=== PATIENT | male | born 1965 | race Caucasian/White ===

== ENCOUNTER 2020-04-30 12:58 | Inpatient (IN) | payer MEDICARE, OTHER ==
[~2020-04-30 12:58] MED LIST: Iopamidol-370 76% 500 ML 1 ML ONE
[2020-04-30] MEDS ORDERED: Acetaminophen 500 MG TAB ONE ×2 (13:34→13:45)
[2020-04-30] MEDS ORDERED: Aspirin 325 MG TAB ONE (13:45)
--- NOTE | 2020-04-30 16:34 | CT ---
Head CT without contrast: CT angiogram head CT angiogram neck: 04/30/2020 HISTORY: Vertigo for one week, acute worsening of vertigo early this morning. Right-sided headache TECHNIQUE: Axial CT imaging at 3.75 mm intervals from vertex through skull base without contrast. Sub sequently, axial CT imaging at 1.25 mm intervals from vertex through lung apices with IV contrast using CT angiogram protocol with coronal and sagittal 3-D reformatted imaging FINDINGS: The noncontrast enhanced head CT demonstrates no intracranial hemorrhage, midline shift, ma ss effect, or ventricular enlargement. The visualized paranasal sinuses and mastoid air cells appear well aerated. No displaced calvarial fracture. Incidental note is made of a pulmonary nodule in the right upper lobe measuring 9 mm on axial image 3 9. There are also partially visualized prominent nodes in the hilar regions measuring up to approximately 1.6 cm on the left and 2 cm on the right. The retroantral fat, parapharyngeal fat, parotid gland, and submandibular glands unremarkable bilater ally. Hyoid bone, thyroid cartilage, cricoid cartilage, level of the glottis, thyroid gland, the epiglottis and preepiglottic fat appear grossly unremarkable. No lymphadenopathy is noted within the neck. The vertebral artery is patent bilaterally with no evidence for hemodynamically significant stenosis or vascular occlusion of either vertebral artery. The basilar artery is patent. There is a patent posterior communicating artery on the left with a hyp oplastic left P1 segment. Bilateral posterior cerebral arteries appear patent. No saccular aneurysm, high-grade stenosis, or vascular occlusion is seen involving the posterior circulation. The origin of the innominate artery, bilateral subclavian arteries, and bilateral common carotid romeo ricky appears unremarkable. There is a bovine arch noted. On the basis of NASCET criteria there is no hemodynamically significant stenosis seen involving the internal or the common carotid artery on e ither side. The M1 segment, the MCA bifurcation, the a 1 segment, the anterior communicating artery, the distal A CA branches, and the distal MCA branches appear unremarkable with no saccular aneurysm, high-grade stenosis, or vascular occlusion noted. IMPRESSION: Noncontrast enhanced head CT demonstrates no intracranial hemorrhage. CT angiogram of the head and neck demonstrates no acute arterial abnormality. There is a pulmonary nodule within the right upper lobe measuring in the 9 mm range and there is bila teral hilar prominence, incompletely assessed. Follow-up CT of the chest with IV contrast suggested. Results discussed with Dr. Trujillo at 4:30 PM 04/30/2020
--- NOTE | 2020-04-30 17:29 | CON ---
NEUROLOGY CONSULTATION DATE OF CONSULTATION: 04/30/2020 REASON FOR CONSULTATION: Dizziness, nausea, vomiting R/O posterior circulation TIA HISTORY OF PRESENT ILLNESS: Mr. Mehta is a 54-year-old male with medical history significant for hypertension and anxiety disorder who presented to the emergency room with dizziness and severe headache associated with nausea and vomiting. He was at the outside hospital and there was a concern about posterior circulation stroke, so he was transferred here for higher level of care. Per patient, he woke up around 3:00 a.m. in the morning and was stumbling and felt like the room and everything is moving in waves. He woke up his around 6:30 am and at that time he also had severe headache with dizziness, difficulty walking with nausea and vomiting which lasted till 7 am. The decided to bring him to the hospital for further evaluation. He had history of hypertension and anxiety disorder and is supposed to be on medications, which he has not taken. One week prior to this admission, he was evaluated for vertigo which resolved with scopolamine. The patient's symptoms have been improved since admission through the emergency room, and he denies any focal weakness, focal paresthesias, double vision, loss of vision, loss of consciousness, difficulty with slurred speech, aphasia, chest pain, abdominal pain, recent illness or recent exposure to COVID-19. Head CT was done at the outside emergency room and he was transferred here for higher level of care because of concern of posterior circulation TIA/Stroke. In the emergency room, CTA of the head and neck was done, which was negative for acute intracranial pathology. Head CT did not reveal any bleed or acute intracranial pathology. REVIEW OF SYSTEMS: All systems reviewed and were negative except the pertinent positives and negatives mentioned in the HPI. PAST MEDICAL HISTORY: Anxiety disorder, hypertension. PAST SURGICAL HISTORY: None. ALLERGIES: PENICILLIN. SOCIAL HISTORY: , lives with his . He denies any illegal drug abuse. PHYSICAL EXAMINATION: VITAL SIGNS: Blood pressure 140/60, pulse 88, respiratory rate 18. CVS: Regular rate and rhythm. CHEST: Clear. ABDOMEN: Soft. NECK: Supple. NEUROLOGIC: Mental status, the patient is alert and oriented to person, place, and time. Speech is clear. Recent and remote memory intact. Fund of knowledge is appropriate. Cranial nerves 2 through 12 intact. No nystagmus. Motor, muscle tone and bulk are normal. Strength 5/5 bilaterally. Sensory intact. Cerebellar, finger-nose testing intact. Gait deferred due to patient's safety reason. DATA REVIEWED: I reviewed the CT of the head and neck, which was negative for acute intracranial pathology. Head CT was negative for acute intracranial hemorrhage. ASSESSMENT AND PLAN: Mr. Mehta is a 54-year-old male with medical history significant for hypertension and anxiety disorder, presented to the emergency room with dizziness, nausea, vomiting with concern for posterior circulation stroke. Consider MRI of the brain to rule out acute intracranial pathology. Head CT did not reveal any acute intracranial hemorrhage. CT of the head and neck did not reveal hemodynamically significant stenosis. Neuro checks every 4 hours, continue permissive control of blood pressure at this time. Strict control of blood glucose. Check hemoglobin A1c, fasting lipid panel, and TSH. Telemetry to rule out arrhythmias. 2D echo to evaluate for left ventricular ejection fraction and to rule out PFO. Start aspirin and high-intensity statin for secondary stroke prevention. Continue medical management per primary team. Plan discussed in detail with the ED physician, the patient and the . We will continue to follow. Thank you for the consult. Job ID: [id number] [facility]
--- NOTE | 2020-04-30 17:31 | MRI ---
MRI BRAIN WITHOUT CONTRAST: HISTORY: Altered mental status, vertigo FINDINGS: No restricted diffusion is seen. There are few foci of T2 prolongation in the periventricular white m atter, consistent with minimal chronic small vessel ischemic disease. The ventricular size is appropriate and the basilar cisterns are patent. No evidence of acute infarct, hemorrhage, midline shift or abnormal extra-axial fluid collections is seen. The visualized paranasal sinuses and mastoid air cells are well-aerated. IMPRESSION: No evidence of acute intracranial process.
[2020-04-30 17:57] VITALS: BMI 35.6
[2020-04-30] MEDS ORDERED: Acetaminophen 325 MG TAB PO PRN (19:15)
[2020-04-30] MEDS ORDERED: Ondansetron PF 4 MG/2 ML Vial IVP PRN (19:15)
[2020-04-30] MEDS ORDERED: Ondansetron ODT 4 MG TAB SL PRN (19:15)
[2020-04-30] MEDS: Atorvastatin Calcium 40 MG TAB PO SCH (20:45)
--- NOTE | 2020-05-01 00:30 | HP ---
REASON FOR ADMISSION: Dizziness. HISTORY OF PRESENT ILLNESS: This is a 54-year-old male patient, who a week ago developed dizziness described as imbalance. He visited an urgent care and was given scopolamine. He improved, but the sensation recurred today. He described it as inability to ambulate without holding onto something, he could not even walk to the bathroom. He did experience right-sided lip numbness, but no arm or leg numbness. No visual changes. No headaches. No loss of consciousness, he did visit [facility]. 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 He was sent to our hospital. Currently, he is in our emergency room, appears to be doing well, was eating his dinner. He denies being dizzy, his tells me that he had something similar in the past, labeled as having a TIA, he does have history of hypertension but is not taking his blood pressure medications. PAST MEDICAL HISTORY: 1. High blood pressure, noncompliant with his medication. 2. 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 3. Anxiety. 4. TIA. SOCIAL HISTORY: He does not smoke. He drinks socially. FAMILY HISTORY: Positive for heart disease. ALLERGIES: TO SULFA AND PENICILLIN. HE DOES NOT EXACTLY REMEMBER THE REACTION, BUT HE THINKS HE HAD A RASH WHEN HE TOOK THOSE TWO MEDICATIONS IN THE PAST. REVIEW OF SYSTEMS: All systems reviewed except the above mentioned dizziness found to be negative. PHYSICAL EXAMINATION: GENERAL: Awake, alert, oriented, does not appear in distress. VITAL SIGNS: His blood pressure is 158/98, pulse of 70, saturating 98% on room air. HEENT: Head is nontraumatic, normocephalic. Pupils equal, reactive. Extraocular movements are intact. Nonicteric sclerae. Well injected conjunctivae. Oral mucosa normal. Nasal mucosa normal. NECK: Supple. No adenopathy. No murmur. Thyroid is not palpable. Trachea is midline. No supraclavicular adenopathy. HEART: S1, S2, regular. No murmurs. No gallops. No friction rubs. No displacement of PMI. LUNGS: Clear to auscultation bilaterally. No wheezes. No rhonchi. No crackles. ABDOMEN: Bowel sounds are positive. Nontender abdomen. No visceromegaly. EXTREMITIES: No lower extremity edema. No cyanosis noted. NEURO: Cranial nerves II through XII within normal limits. Normal motor function. Normal sensory function and reflexes. No dysmetria. LABS AND IMAGING: Blood work done at [facility] shows WBC of 4.2, hemoglobin 16, and platelets of 135. Sodium 141, potassium 4.5, BUN 15, creatinine 1.2. LFTs within normal limits. EKG shows normal sinus rhythm. CTA of the head and neck shows no intracranial abnormality, incidental finding of a pulmonary nodule within the right upper lobe measuring in the 9 mm range, and bilateral hilar prominence, incompletely assessed. Followup CT of the chest with IV contrast suggested. Brain MRI is still pending. ASSESSMENT AND PLAN: This is a 54-year-old male patient, who is presenting with vertigo/dizziness. He did undergo CT of the head that basically did not show any abnormality. Incidentally, we saw some nodules in the lungs. Recommended CT of the chest. 1. Neuro: The patient will be admitted, will do frequent neuro checks. We will practice permissive hypertension. We will start him on aspirin, Neurology was consulted through the ER, will start him on Lipitor, we will check his lipid profile. 2. Cardiac: The patient has high blood pressure. He is noncompliant with his medication, for now we will practice permissive hypertension. 3. For DVT prophylaxis, he will be on Lovenox. 4. For the incidental finding of pulmonary nodules, we will do a CT of the chest with IV contrast to further investigate that finding. Job ID: [id number]
[2020-05-01 03:10] LABS: SARS-CoV-2 PCR by NAA Not Detected (NotDetected)
[2020-05-01 05:51] LABS: Cardiac Risk 4.2 (Less than 4.5)
[2020-05-01] MEDS: Aspirin 325 mg Enteric Coated Tablet PO SCH (08:28)
[2020-05-01] MEDS: Enoxaparin Sodium 40 MG/0.4 ML SYRINGE SC SCH (08:28)
--- NOTE | 2020-05-01 13:18 | PDOC.NEUPN ---
- Subjective Encounter Date: 05/01/20 Subjective: Mr. Mehta is a 54-year-old male who presented with dizziness, nausea and vomiting which is now resolved. He is doing much better today. - Objective Vital Signs & Weight: Vital Signs (12 hours) Temp Pulse Pulse Pulse Resp BP BP 05/01/20 11:46 98.1 F 73 16 05/01/20 09:24 80 69 167/101 H 172/96 H 05/01/20 08:28 05/01/20 07:26 98 F 64 16 05/01/20 04:00 98.3 F 68 20 05/01/20 02:43 98.0 F 71 14 BP BP Pulse Ox 05/01/20 11:46 141/90 H 97 05/01/20 09:24 05/01/20 08:28 98 05/01/20 07:26 160/95 H 98 05/01/20 04:00 164/90 H 97 05/01/20 02:43 159/94 H 98 Weight Weight 255 lb 2 oz I&O: 04/30/20 05/01/20 05/02/20 06:59 06:59 06:59 Intake Total 400 Balance 400 Radiology Reviewed by me: Yes EKG Reviewed by me: Yes ROS - Review of Systems Constitutional: denies: fever, chills, sweats, weakness, malaise, other Eyes: denies: pain, vision change, conjunctivae inflammation, eyelid inflammation, redness, other ENT: denies: ear pain, ear discharge, nose pain, nose discharge, nose congestion, mouth pain, mouth swelling, throat pain, throat swelling, other Cardiovascular: denies: no pertinent history, AFIB, CAD, CHF, HTN, NM, Syncope, Hyperlipidemia, Mitral valve stenosis, Aortic stenosis, Valve insufficiency, Pulmonary hypertension, Other Gastrointestinal: denies: nausea, vomiting, abdominal pain, diarrhea, constipation, melena, hematochezia, other Genitourinary: denies: dysuria, frequency, incontinence, hematuria, retention, other Musculoskeletal: denies: neck pain, shoulder pain, arm pain, back pain, hand pain, leg pain, foot pain, other Skin: denies: rash, lesions, enrico, bruising, other Neurological: denies: weakness, numbness, incoordination, change in speech, confusion, seizures, other - Medication Medications: Active Medications Generic Name Dose Route Start Last Admin Trade Name Sanchezq PRN Reason Stop Dose Admin Aspirin 325 mg 05/01/20 09:00 05/01/20 08:28 Aspirin 325 Mg Enteric Coated Tablet PO 325 mg DAILY [facility] Administration Atorvastatin Calcium 40 mg 04/30/20 21:00 04/30/20 20:45 Atorvastatin Calcium 40 Mg Tab PO 40 mg HS [facility] Administration Enoxaparin Sodium 40 mg 05/01/20 09:00 05/01/20 08:28 Enoxaparin Sodium 40 Mg/0.4 Ml Syringe SC 40 mg 0900 [facility] Administration - Exam General Appearance: awake alert Eye: PERRL ENT: normocephalic atraumatic Neck: supple Respiratory: CTAB Cardiovascular: RRR Gastrointestinal: soft Extremities: no cyanosis Skin: normal turgor Neurological: CN's grossly intact, normal sensation to touch, no weakness, no focal deficits, no new deficit Musculoskeletal: normal tone, normal strength, no muscle wasting PSYCH: normal affect, normal behavior, A&O x 3, oriented to person, oriented to place, oriented to time Results - Radiology Interpretation MRI - head Additional Comment: MRI of the brain was negative for acute intracranial pathology. PN A/P (1) TIA (transient ischemic attack) Code(s): G45.9 - TRANSIENT CEREBRAL ISCHEMIC ATTACK, UNSPECIFIED Status: Acute (2) Hypertension Code(s): I10 - ESSENTIAL (PRIMARY) HYPERTENSION Status: Acute (3) Anxiety Code(s): F41.9 - ANXIETY DISORDER, UNSPECIFIED Status: Acute - Plan Daily Plan: PT/OT, out of bed/ambulate Mr. Mehta is a 54-year-old male with medical history significant for hypertension and anxiety disorder noncompliant with medication presented with an episode of extreme dizziness associated with nausea vomiting and headache which lasted for about [address] was done at the outside hospital and there was a concern about cerebellar stroke so he was transferred here for higher level of care. Most likely TIA. The second episode in the last 2 weeks MRI of the brain reviewed which was negative for acute intracranial pathology. CT of the head and neck did not reveal hemodynamically significant stenosis. 2D echo to evaluate for left ventricular ejection fraction is pending at this time. Neurochecks every 4 hours. Strict control of blood pressure and blood glucose. Telemetry to rule out arrhythmias. Continue aspirin high intensity statin for secondary stroke prevention. PT/OT/speech. Continue medical management per primary team. Plan discussed in detail with the patient
--- NOTE | 2020-05-01 14:01 | PQF ---
CLINICAL DOCUMENTATION CLARIFICATION FORM: Dear Dr. Dempsey Date: 05/01/20 Please exercise your independent, professional judgment in responding to the clarification form. Clinical indicators are provided on the bottom of this form for your review. Please check appropriate box(es) to clarify if the following diagnosis has been ruled in our ruled out: CEREBELLAR STROKE [ ] Ruled in diagnosis [ ] Continue to treat [ ] Resolved [ y ] Ruled out diagnosis [ ] Improving [ ] Cannot rule out diagnosis [ ] Other diagnosis [ ] Unable to determine In addition, please specify: Present on Admission (POA): [ ] Yes [ ] No [ ] Unable to determine For continuity of documentation, please document condition throughout progress notes and discharge summary. Thank You. To be completed by CDI/Coding staff for physician review: CLINICAL INDICATORS - SIGNS / SYMPTOMS / LABS / RESULTS AND LOCATION IN MR ER NOTE: "CEREBELLAR STROKE" H&P (RAFFY): A CT OF THE HEAD WITHOUT CONTRAST WAS DONE THAT SHOWED A SUSPECTED PUNCTATE CHRONIC RIGHT CEREBELLAR INFARCT." NEUROLOGY PN 05/01: "TIA" RISK FACTORS / RESULTS AND LOCATION IN MR H/O HTN (CONSULT NOTE RIGHT SIDED HEADACHE (ER NOTE) FEELS LIKE ROOM IS SPINNING (ER NOTE) TROUBLE FOCUSING EYE (ER NOTE) H/O TIA (ER NOTE) H/O MULTIPLE CONCUSSIONS (ER NOTE) TREATMENTS / RESULTS AND LOCATION IN MR BRAIN CT AT OUTSIDE HOSPITAL (ER NOTE) NEURO CHECKS (H&P) BRAIN MRI / CT MCGRATH OF COSME / ECHO TO R/O PFO (CONSULT REPORT- CELSO) ASPIRIN (STARTED 05/01) LIPITOR (04/30-PRESENT) LOVENOX (STARTED 05/01) CDS Signature: Magnolia Peters RN Phone #: [phone] Date: 05/01/20 This is a permanent part of the Medical Record [facility]
[2020-05-01] MEDS ORDERED: hydrALAZINE 20 MG/ML VIAL SLOW IVP PRN (14:35)
--- NOTE | 2020-05-01 14:39 | PDOC.HOSPP ---
- Subjective Encounter Date: 05/01/20 Subjective: When I saw him he was feeling very well then nurse page me reporting that he is having headaches. - Objective Vital Signs & Weight: Vital Signs (12 hours) Temp Pulse Pulse Pulse Resp BP BP 05/01/20 11:46 98.1 F 73 16 05/01/20 09:24 80 69 167/101 H 172/96 H 05/01/20 08:28 05/01/20 07:26 98 F 64 16 05/01/20 04:00 98.3 F 68 20 05/01/20 02:43 98.0 F 71 14 BP BP Pulse Ox 05/01/20 11:46 141/90 H 97 05/01/20 09:24 05/01/20 08:28 98 05/01/20 07:26 160/95 H 98 05/01/20 04:00 164/90 H 97 05/01/20 02:43 159/94 H 98 Weight Weight 255 lb 2 oz I&O: 04/30/20 05/01/20 05/02/20 06:59 06:59 06:59 Intake Total 400 Balance 400 Hospitalist ROS - Medication Medications: Active Medications Generic Name Dose Route Start Last Admin Trade Name Freq PRN Reason Stop Dose Admin Aspirin 325 mg 05/01/20 09:00 05/01/20 08:28 Aspirin 325 Mg Enteric Coated Tablet PO 325 mg DAILY [facility] Administration Atorvastatin Calcium 40 mg 04/30/20 21:00 04/30/20 20:45 Atorvastatin Calcium 40 Mg Tab PO 40 mg HS [facility] Administration Enoxaparin Sodium 40 mg 05/01/20 09:00 05/01/20 08:28 Enoxaparin Sodium 40 Mg/0.4 Ml Syringe SC 40 mg 0900 [facility] Administration Hospitalist Exam Vitals: Vital Signs (12 hours) Temp Pulse Pulse Pulse Resp BP BP 05/01/20 11:46 98.1 F 73 16 05/01/20 09:24 80 69 167/101 H 172/96 H 05/01/20 08:28 05/01/20 07:26 98 F 64 16 05/01/20 04:00 98.3 F 68 20 05/01/20 02:43 98.0 F 71 14 BP BP Pulse Ox 05/01/20 11:46 141/90 H 97 05/01/20 09:24 05/01/20 08:28 98 05/01/20 07:26 160/95 H 98 05/01/20 04:00 164/90 H 97 05/01/20 02:43 159/94 H 98 Weight Weight 255 lb 2 oz General Appearance: NAD Eye: PERRL ENT: normocephalic atraumatic Neck: supple, symmetric Heart: RRR, no murmur, no gallops Respiratory: CTAB, no wheezes, no rales Gastrointestinal: soft, non-tender Extremities: no cyanosis, no clubbing Skin: normal turgor, no lesions Hosp A/P (1) Pulmonary nodule Code(s): R91.1 - SOLITARY PULMONARY NODULE Status: Acute (2) Anxiety Code(s): F41.9 - ANXIETY DISORDER, UNSPECIFIED Status: Acute (3) Hypertension Code(s): I10 - ESSENTIAL (PRIMARY) HYPERTENSION Status: Acute (4) TIA (transient ischemic attack) Code(s): G45.9 - TRANSIENT CEREBRAL ISCHEMIC ATTACK, UNSPECIFIED Status: Acute - Plan This is a 54-year-old male patient who presented with episode of dizziness initially suspected to have a cerebellar infarct but so far CTA of the head and neck and an MRI of the brain not showing any evidence of stroke, most likely had a TIA. Neuro--- he continues to be monitored on telemetry, he will undergo an echocardiogram, will restart him on his blood pressure medications, will continue statin and aspirin. I will resume his Neurontin that he usually takes for headaches and his antidepressive agents, patient has a long history of noncompliance. We will add an HbA1c level his labs. Pulmonary--- incidentally found to have suspected pulmonary nodule he will undergo CT of the chest for further investigation. For DVT prophylaxis the Lovenox.
[2020-05-01] MEDS: Gabapentin 300 MG CAP PO SCH ×2 (14:47→20:31)
[2020-05-01] MEDS: HYDROcodone/Acetaminophen 5/325 mg Tablet PO PRN (14:49)
--- NOTE | 2020-05-01 16:35 | CT ---
CT chest with IV contrast HISTORY: Lung nodule. COMPARISON: CT arteriogram neck 04/30/2020. FINDINGS: The bilobed groundglass nodule within the anterior aspect of the right upper lobe is again demonstrated, 0.8 cm greatest diameter on the current coronal images. A 0.7 cm groundglass nodule is associated with the upper pleural fissure of the left lung. A 0.8 cm solid subpleural nodules present within the lateral aspect of the right lower lobe. Addition al, tiny subpleural nodules involve each lung, none greater than 0.3 cm diameter. No pleural fluid, consolidation, or pneumothorax. A 1.1 cm right hilar node and a 1.3 cm left hilar node are apparent. A 0.9 cm right upper paraesophag eal lymph node is demonstrated. Additional smaller reactive appearing lymph nodes scattered throughout the mediastinum. At the GE junction, there are 2 adjacent paraesophageal lymph nodes that are 1.2 cm and 1.0 cm diameters on the axial images. Small hiatal hernia. Old left anterolateral rib fractures. IMPRESSION : Bilateral subcentimeter parenchymal and subpleural nodules and reactive appearing mediastinal lymph n odes. Please consider follow-up CT chest in 6 months to evaluate for stability/resolution.
[2020-05-01] MEDS: Atorvastatin Calcium 40 MG TAB PO SCH (20:31)
[2020-05-02] MEDS: HYDROcodone/Acetaminophen 5/325 mg Tablet PO PRN ×2 (00:53→10:20)
[2020-05-02 08:14] VITALS: BP 148/91; TEMP 98.5
--- NOTE | 2020-05-02 08:16 | PDOC.DS.DS ---
Provider Date of Admission: 04/30/20 15:49 Date of Discharge: 05/02/20 Admitting Provider: Lupe Dempsey MD Consultations: Other (Neurology) Primary Care Physician: PATO SUBRAMANIAN MD Course Hospital Course: This is a 54-year-old male patient who presented with episode of dizziness initially suspected to have a cerebellar infarct but CTA of the head and neck and an MRI of the brain not showing any evidence of stroke, most likely he had a TIA. He was monitored on telemetry, he did undergo an echocardiogram that showed normal ejection fraction, he was restarted on his blood pressure medications, he was maintained on statin and aspirin. He was resumed on Neurontin that he usually takes for headaches and his antidepressive agents, patient has a long history of noncomplian HbA1c was 5.Tr iglyceride 100, cholesterol 166, LDL 106, HDL 40. Incidentally he was found to have suspected pulmonary nodule. Patient underwent a CT of the chest that showed bilateral subcentimeter parenchymal and subpleural nodules and reactive appearing mediastinal lymph nodes, recommendation is to repeat a CT of the chest in 6-month to evaluate for stability and resolution. I did relay that result to him and to his , they verbalized understanding and agreement. After the restart of his blood pressure medication his blood pressure did improve but in order to optimize his blood pressure I will increase the Diovan component of the medication from 80 to 160 keep hydrochlorothiazide at the same dose. I will provide him with prescriptions for his current medications and a prescription for statin. I stressed upon him to schedule with a primary care physician and to comply with his medication regimen, he verbalized understanding. Resuscitation Status: 04/30/20 17:18 Resuscitation Status Routine Resuscitation Status: FULL: Full Resuscitation Vitals: Vital Signs (12 hours) Temp Pulse Resp BP BP Pulse Ox 05/02/20 07:30 98.5 F 71 18 148/91 H 98 05/02/20 04:00 97.7 F 67 16 140/94 H 97 05/02/20 00:50 70 05/02/20 00:00 151/99 H Weight Weight 255 lb 2 oz Physical Exam: The patient was seen and examined on the day of discharge. General Appearance: NAD, awake alert Eye: PERRL, anicteric sclera ENT: normocephalic atraumatic, no oropharyngeal lesions Neck: supple, symmetric, no JVD Respiratory: CTAB, no wheezes, no rales, no ronchi Cardiovascular: RRR, no murmur, no gallops, no rubs Gastrointestinal: soft, non-tender, non-distended Extremities: no cyanosis, no clubbing, no edema Skin: normal turgor, no lesions Problem Time Spent in discharge related activities (mins): 45 (1) Pulmonary nodule Code(s): R91.1 - SOLITARY PULMONARY NODULE Status: Acute (2) Anxiety Code(s): F41.9 - ANXIETY DISORDER, UNSPECIFIED Status: Acute (3) Hypertension Code(s): I10 - ESSENTIAL (PRIMARY) HYPERTENSION Status: Acute (4) TIA (transient ischemic attack) Code(s): G45.9 - TRANSIENT CEREBRAL ISCHEMIC ATTACK, UNSPECIFIED Status: Acute Plan Prescriptions: Valsartan/Hydrochlorothiazide [Valsartan-Hctz 160-12.5 mg Tab] 1 each PO Q24HR #30 tablet Buspirone HCl [busPIRone HCl] 30 mg PO DAILY #30 tablet Aspirin [Ecotrin Regular Strength] 325 mg PO DAILY #30 tab Gabapentin 300 mg PO TID #90 capsule Atorvastatin Calcium [Lipitor] 40 mg PO HS #30 tab Sertraline HCl [Zoloft] 100 mg PO DAILY #30 tab Home Medications: Medication Instructions Recorded Confirmed Type Aspirin [Ecotrin Regular Strength] 325 mg PO DAILY #30 tab 05/02/20 Rx Atorvastatin Calcium [Lipitor] 40 mg PO HS #30 tab 05/02/20 Rx Buspirone HCl [busPIRone HCl] 30 mg PO DAILY #30 tablet 05/02/20 Rx Gabapentin 300 mg PO TID #90 capsule 05/02/20 Rx Sertraline HCl [Zoloft] 100 mg PO DAILY #30 tab 05/02/20 Rx Valsartan/Hydrochlorothiazide 1 each PO Q24HR #30 tablet 05/02/20 Rx [Valsartan-Hctz 160-12.5 mg Tab] Allergies: Penicillins Allergy (Verified 04/30/20 22:59) Sulfa (Sulfonamide Antibiotics) Allergy (Verified 04/30/20 22:59) PER ED VISIT SUMMARY SHEET (04/30/20) Activity:: Activity as Tolerated Nourishment:: Heart Healthy Diet Referrals: PATO SUBRAMANIAN [Primary Care Provider] - Disposition: HOME Quality CORE MEASURES:: Stroke/TIA Did you prescribe antithrombotic therapy?: Yes Did you prescribe anticoagulant for A Fib/Flutter?: No Specify reason for no DC anticoagulant: Treatment not indicated Did you prescribe a statin medication?: Yes
[2020-05-02] MEDS ORDERED: Hydrochlorothiazide 25 MG TAB PO SCH (09:00)
[2020-05-02] MEDS ORDERED: Valsartan 80 MG TAB PO SCH (09:00)
[2020-05-02] MEDS ORDERED: busPIRone HCl 10 MG TAB PO SCH (09:00)
[2020-05-02] MEDS: Gabapentin 300 MG CAP PO SCH (10:15)
[2020-05-02] MEDS: Aspirin 325 mg Enteric Coated Tablet PO SCH (10:16)
[2020-05-02] MEDS: Enoxaparin Sodium 40 MG/0.4 ML SYRINGE SC SCH (10:16)
--- NOTE | 2020-05-02 12:15 | PDOC.NEUPN ---
- Subjective Encounter Date: 05/02/20 Subjective: No acute complaints in the last 24 hours. - Objective Vital Signs & Weight: Vital Signs (12 hours) Temp Pulse Resp BP Pulse Ox 05/02/20 07:30 98.5 F 71 18 148/91 H 98 05/02/20 04:00 97.7 F 67 16 140/94 H 97 05/02/20 00:50 70 Weight Weight 255 lb 2 oz I&O: 05/01/20 05/02/20 05/03/20 06:59 06:59 06:59 Intake Total 400 Balance 400 Radiology Reviewed by me: Yes EKG Reviewed by me: Yes ROS - Review of Systems Constitutional: denies: fever, chills, sweats, weakness, malaise, other Eyes: denies: pain, vision change, conjunctivae inflammation, eyelid inflammation, redness, other ENT: denies: ear pain, ear discharge, nose pain, nose discharge, nose congestion, mouth pain, mouth swelling, throat pain, throat swelling, other Respiratory: denies: cough, dry, shortness of breath, hemoptysis, SOB with excertion, pleuritic pain, sputum, wheezing, other Cardiovascular: denies: no pertinent history, AFIB, CAD, CHF, HTN, MA, Syncope, Hyperlipidemia, Mitral valve stenosis, Aortic stenosis, Valve insufficiency, Pulmonary hypertension, Other Gastrointestinal: denies: nausea, vomiting, abdominal pain, diarrhea, constipation, melena, hematochezia, other Genitourinary: denies: dysuria, frequency, incontinence, hematuria, retention, other Musculoskeletal: denies: neck pain, shoulder pain, arm pain, back pain, hand pain, leg pain, foot pain, other Skin: denies: rash, lesions, enrico, bruising, other Neurological: denies: weakness, numbness, incoordination, change in speech, confusion, seizures, other All Systems: All other systems reviewed; all pertinent +/- noted in HPI/Subj - Medication Medications: Active Medications Generic Name Dose Route Start Last Admin Trade Name Freq PRN Reason Stop Dose Admin Hydrocodone Bitart/Acetaminophen 1 tab 05/01/20 14:29 05/02/20 10:20 Hydrocodone/Acetaminophen 5/325 Mg Tablet PO 1 tab Q4H PRN Administration Mild-Moderate Pain (1-5) Aspirin 325 mg 05/01/20 09:00 05/02/20 10:16 Aspirin 325 Mg Enteric Coated Tablet PO 325 mg DAILY DOMINIQUE Administration Atorvastatin Calcium 40 mg 04/30/20 21:00 05/01/20 20:31 Atorvastatin Calcium 40 Mg Tab PO 40 mg HS DOMINIQUE Administration Buspirone HCl 30 mg 05/02/20 09:00 05/02/20 10:16 Buspirone Hcl 10 Mg Tab PO 30 mg DAILY DOMINIQUE Administration Enoxaparin Sodium 40 mg 05/01/20 09:00 05/02/20 10:16 Enoxaparin Sodium 40 Mg/0.4 Ml Syringe SC Not Given 0900 DOMINIQUE Gabapentin 300 mg 05/01/20 15:00 05/02/20 10:15 Gabapentin 300 Mg Cap PO 300 mg TID DOMINIQUE Administration Hydralazine HCl 5 mg 05/01/20 14:35 05/02/20 00:50 Hydralazine 20 Mg/Ml Vial SLOW IVP 5 mg Q6H PRN Administration Hypertension SBP>150 Hydrochlorothiazide 12.5 mg 05/02/20 09:00 05/02/20 10:15 Hydrochlorothiazide 25 Mg Tab PO 12.5 mg DAILY DOMINIQUE Administration Sertraline HCl 100 mg 05/02/20 09:00 05/02/20 10:16 Sertraline Hcl 100 Mg Tab PO 100 mg DAILY DOMINIQUE Administration Valsartan 80 mg 05/02/20 09:00 05/02/20 10:15 Valsartan 80 Mg Tab PO 80 mg DAILY DOMINIQUE Administration - Exam General Appearance: awake alert Eye: PERRL ENT: normocephalic atraumatic Neck: supple Respiratory: CTAB Cardiovascular: RRR Gastrointestinal: soft Extremities: no cyanosis Skin: normal turgor Neurological: CN's grossly intact, normal sensation to touch, no weakness, no focal deficits, no new deficit Musculoskeletal: normal tone, normal strength, no muscle wasting PSYCH: normal affect, normal behavior, A&O x 3, oriented to person, oriented to place, oriented to time Results - Radiology Interpretation MRI - head Additional Comment: MRI brain negative for acute intracranial pathology. PN A/P (1) TIA (transient ischemic attack) Code(s): G45.9 - TRANSIENT CEREBRAL ISCHEMIC ATTACK, UNSPECIFIED Status: Acute (2) Hypertension Code(s): I10 - ESSENTIAL (PRIMARY) HYPERTENSION Status: Acute (3) Anxiety Code(s): F41.9 - ANXIETY DISORDER, UNSPECIFIED Status: Acute - Plan Daily Plan: PT/OT, speech therapy, out of bed/ambulate Mr. Mehta is a 54-year-old male with medical history significant for hypertension and anxiety disorder noncompliant with medication presented with an episode of extreme dizziness associated with nausea vomiting and headache which lasted for about [address] was done at the outside hospital and there was a concern about cerebellar stroke so he was transferred here for higher level of care. Most likely TIA. The second episode in the last 2 weeks. Work up negative and patient back to the baseline. MRI of the brain reviewed which was negative for acute intracranial pathology. CT of the head and neck did not reveal hemodynamically significant stenosis. 2D echo to evaluate for left ventricular ejection fraction is unremarkable. Neurochecks every 4 hours. Strict control of blood pressure and blood glucose. Telemetry to rule out arrhythmias. Continue aspirin and high intensity statin for secondary stroke prevention. PT/OT/speech. Continue medical management per primary team. Plan discussed in detail with the patient
== END 2020-05-02 12:15 | disposition home or self-care (01) | DRG 69 ==
LOC: ERS 12:58 → 2SE 15:49
PROVIDERS: ADMIT Internal Medicine; ATTEND Internal Medicine
DX: G45.9 Transient cerebral ischemic attack, unspecified (principal); Z20.822 Contact with and (suspected) exposure to COVID-19; R91.1 Solitary pulmonary nodule; F41.9 Anxiety disorder, unspecified; I10 Essential (primary) hypertension; Z88.0 Allergy status to penicillin; Z88.2 Allergy status to sulfonamides; Z86.73 Personal history of transient ischemic attack (TIA), and cerebral infarction without residual deficits; Z82.49 Family history of ischemic heart disease and other diseases of the circulatory system; Z79.899 Other long term (current) drug therapy
CPT/HCPCS: 36415; 70496; 70498; 70551; 71260; 80061; 83036; 87635; 93306; J0360; J1650; Q9967; U0003; U0005